=== PATIENT | male | born 1950 | race Caucasian/White ===

== ENCOUNTER 2017-04-06 10:00 | Emergency (ER) | payer MEDICARE ==
[2017-04-06] MEDS ORDERED: TESSALON PERLE100 M1 PO (10:22)
[2017-04-06] MEDS ORDERED: PREDNISONE10 M1 PO (10:23)
[2017-04-06] MEDS ORDERED: CYMBALTA60 M1 PO (10:23)
[2017-04-06] MEDS ORDERED: NEURONTIN300 M1 PO (10:23)
[2017-04-06] MEDS ORDERED: TRAZODONE HCL100 M1 PO (10:23)
[2017-04-06] MEDS ORDERED: PERCOCET 5-3251 EACH PO ×2 (10:24→14:08)
[2017-04-06] MEDS ORDERED: KLONOPIN0.5 M1 PO (10:24)
[2017-04-06] MEDS ORDERED: QUETIAPINE FUM400 M1 PO (10:25)
[2017-04-06] MEDS ORDERED: MECLIZINE HCL25 M3 PO (10:25)
[2017-04-06] MEDS ORDERED: ONDANSETRON ODT4 M1 SL (10:26)
[2017-04-06] MEDS ORDERED: CYCLOBENZAPRINE10 M1 PO (10:26)
[2017-04-06] MEDS ORDERED: QUETIAPINE FUM200 M1 PO (11:08)
[2017-04-06] MEDS ORDERED: MELATONIN10 M6 PO (11:09)
== END 2017-04-06 14:16 ==
LOC: EDMED 10:00
DX: M25.521 Pain in right elbow (principal); J44.9 Chronic obstructive pulmonary disease, unspecified; B19.20 Unspecified viral hepatitis C without hepatic coma; Z79.1 Long term (current) use of non-steroidal anti-inflammatories (NSAID); Z79.899 Other long term (current) drug therapy; R22.31 Localized swelling, mass and lump, right upper limb